=== PATIENT | male | born 1965 | race Caucasian/White ===

== ENCOUNTER 2020-05-24 07:30 | Day surgery (SDC) | payer OTHER, SELFPAY ==
[~2020-05-24] VITALS: Ht 177.8 cm; Wt 73.5 kg
[~2020-05-24 07:30] MED LIST: CEFAZOLIN SOD 2 GM in D5W 50 ML IV ONE
[2020-05-24] MEDS ORDERED: POLYMYXIN 500,000/BACIT.10,000 UNITS in NS IRR 1 L IR ONE (08:35)
[2020-05-24] MEDS ORDERED: ONDANSETRON HCL 4 MG/2 ML VIAL IVP PRN (09:45)
[2020-05-24] MEDS ORDERED: KETOROLAC TROMETHAMINE 30 MG VIAL IVP PRN (09:45)
[2020-05-24] MEDS ORDERED: KETOROLAC TROMETHAMINE 30 MG VIAL ONE (10:20)
[2020-05-24] MEDS ORDERED: SEVOFLURANE 15 MIN GAS INH ONE (10:20)
[2020-05-24] MEDS ORDERED: METOCLOPRAMIDE HCL 10 MG/2 ML VIAL ONE (10:20)
[2020-05-24] MEDS ORDERED: LIDOCAINE 1% 10 MG/ML, 20 ML MDV ONE (10:20)
[2020-05-24] MEDS ORDERED: LR 1,000 ML IV.SOLN IV ONE (10:20)
[2020-05-24] MEDS ORDERED: fentaNYL CITRATE/PF 100 MCG/2 ML AMP ONE (10:20)
[2020-05-24] MEDS ORDERED: ONDANSETRON HCL 4 MG/2 ML VIAL ONE (10:20)
[2020-05-24] MEDS ORDERED: PROPOFOL 200MG/ 20ML VIAL (DIPRIVAN) IV ONE (10:20)
[2020-05-24] MEDS ORDERED: DEXAMETHASONE SOD PHOSPHATE 4 MG/ML VIAL ONE (10:20)
[2020-05-24] MEDS ORDERED: NS IRRIG SOLN 1000 ML IR ONE (10:20)
[2020-05-24] MEDS: HYDROmorphone 1 MG INJ. 1 MG/ML AMPUL IVP PRN ×2 (10:45→11:00)
[2020-05-24] MEDS ORDERED: HYDROmorphone 1 MG INJ. 1 MG/ML AMPUL ONE (11:04)
[2020-05-24 11:15] VITALS: BP_SYST 120
[2020-05-24] MEDS ORDERED: HYDROcodone/ACETAMIN 5-325 MG TAB (NORCO/ VICODIN) PO ONE (11:30)
[2020-05-24] MEDS ORDERED: HYDROcodone/ACETAMIN 5-325 MG TAB (NORCO/ VICODIN) ONE (11:42)
== END 2020-05-24 13:00 | disposition home or self-care (01) ==
LOC: SDS 07:30 → SMU 07:30 → SDS 13:00
PROVIDERS: ATTEND Orthopaedic Surgery
DX: S52.502A Unspecified fracture of the lower end of left radius, initial encounter for closed fracture (principal); S52.042A Displaced fracture of coronoid process of left ulna, initial encounter for closed fracture; X58.XXXA Exposure to other specified factors, initial encounter; Y93.89 Activity, other specified; Y92.89 Other specified places as the place of occurrence of the external cause; Y99.8 Other external cause status; Z20.828 Contact with and (suspected) exposure to other viral communicable diseases
CPT/HCPCS: 25606; 76000; C1713; J0690; J1100; J1170; J1885; J2001; J2405; J2704; J2765; J3010; J7060; J7120; U0003